=== PATIENT | male | born 1990 | race Caucasian/White ===

== ENCOUNTER 2016-08-20 09:34 | Emergency (ER) | payer SELFPAY ==
[~2016-08-20] VITALS: Ht 185.4 cm; Wt 83.5 kg
[~2016-08-20 09:34] MED LIST: MOBIC7.5 MG PO
[2016-08-20] MEDS ORDERED: NAPROSYN500 MG PO (13:23)
[2016-08-20 13:32] VITALS: BP 132/80
== END 2016-08-20 13:33 | disposition home or self-care (01) ==
LOC: EME 09:34
DX: I86.1 Scrotal varices (principal)
CPT/HCPCS: 76870; 99281; 99284